=== PATIENT | male | born 1975 | race Caucasian/White ===

== ENCOUNTER 2020-12-16 18:41 | Emergency (ER) | payer OTHER, SELFPAY | END 2020-12-16 18:46 | disposition left against medical advice (07) | PROVIDERS: Emergency Provider Nurse Practitioner Family | DX: Z53.21 Procedure and treatment not carried out due to patient leaving prior to being seen by health care provider (principal) | CPT/HCPCS: 99199 ==

== ENCOUNTER 2025-07-24 15:52 | Outpatient (CLI) | payer OTHER, SELFPAY ==
--- NOTE | ~2025-07-24 | XR_ITS ---
XR lumbar spine 2-3V Indication: M54.9 - Dorsalgia, unspecified Comparison: None Findings: Mild dextroconvex scoliosis, no fracture or subluxation. The disc heights are intact. Soft tissues unremarkable Impression: No acute abnormality. Reviewed, dictated and finalized at location A. Impression: No acute abnormality.
--- NOTE | ~2025-07-24 | XR_ITS ---
XR hand BI arthritis min 3V 07/24/2025 16:25 Indication: Hand pain Procedure: 4 views each hand Comparison: No prior studies for comparison. Findings: There is anatomic alignment. No significant degenerative change. No erosions. No fracture or traumatic malalignment. No significant soft tissue abnormality. No foreign bodies. Impression: 1: No significant bone or joint abnormality. Reviewed, dictated and finalized at location O. Impression: 1: No significant bone or joint abnormality.
--- NOTE | ~2025-07-24 | XR_ITS ---
EXAMINATION: XR chest 2V, 07/24/2025 16:07 CDT HISTORY: R07.89 - Other chest pain COMPARISON: No comparisons available. Technique: 2 views obtained. Findings: The lungs are clear, no effusion. No pneumothorax. Heart is normal size. Mediastinal and hilar contours are within normal limits. Bony thorax no acute abnormality. Impression: No acute cardiopulmonary abnormality. Reviewed, dictated and finalized at location A. Impression: No acute cardiopulmonary abnormality.
[2025-07-24 18:49] LABS: Hematocrit 43.7 % (42.0-52.0); Hemoglobin 14.8 g/dL (14.0-18.0); Mean Corpuscular HGB Conc 33.9 g/dl (32-36); Mean Corpuscular Hemoglobin 30.0 pg (26-34); Mean Corpuscular Volume 88.5 fl (80-100); Platelet Count Result 243 k/mm3 (150-375); Red Blood Count 4.94 M/mm3 (4.6-6.20); White Blood Count 8.5 K/mm3 (4.5-10.0)
[2025-07-24 18:58] LABS: Add Urine Microscopic? NO; Appearance Urine Clear (Clear); Glucose Urine UA Negative (Negative); Leukocyte Esterase Ur Negative LEU/UL (Negative); Nitrate Urine Negative (Negative); Specific Grav Ur 1.019 (1.001-1.035)
[2025-07-24 18:59] LABS: Alanine Aminotransferase 34 U/L (6-50); Albumin Level 4.7 g/dL (3.5-5.1); Alkaline Phosphatase 57 U/L (38-126); Anion Gap 6 mmol/L (4-12); Aspartate Amino Transferase 61 U/L (17-59); Bilirubin,Total 0.4 mg/dL (0.2-1.3); Blood Urea Nitrogen 18 mg/dL (9-20); Calcium 9.4 mg/dL (8.4-10.2); Carbon Dioxide 30 mmol/L (22-30); Chloride 103 mmol/L (98-107); Cholesterol 236 mg/dL (0-200); Estimated Glomerular Filt Rate 47; Glucose 91 mg/dL (65-110); HDL Direct 34 mg/dL; Potassium 4.4 mmol/L (3.4-5.0); Sodium 139 mmol/L (137-145); Total Protein 7.6 g/dL (6.3-8.2); Triglycerides 206 mg/dL (<150)
[2025-07-24 19:15] LABS: Free T4 Free Thyroxine 0.79 ng/dL (0.78-2.19)
[2025-07-24 19:37] LABS: Prostate Specific Antigen 1.6 ng/mL (< OR = 4.0); Thyroid Stimulating Hormone 2.750 uIU/mL (0.465-4.680)
[2025-07-29 08:08] LABS: ANA by IFA Rfx Titer/Pattern Negative (.)
== END 2025-07-24 15:53 | disposition home or self-care (01) ==
LOC: ANHBWCLAB 15:55
PROVIDERS: PCP Nurse Practitioner Adult Health; Visit Provider Nurse Practitioner Adult Health
DX: Z00.00 Encounter for general adult medical examination without abnormal findings (principal); R07.89 Other chest pain; M25.50 Pain in unspecified joint; M79.643 Pain in unspecified hand; M54.9 Dorsalgia, unspecified; R39.9 Unspecified symptoms and signs involving the genitourinary system; Z12.5 Encounter for screening for malignant neoplasm of prostate
CPT/HCPCS: 36415; 71046; 72100; 73130; 80053; 80061; 81003; 84153; 84439; 84443; 85027; 85652; 86038; G0103

== ENCOUNTER 2025-08-05 00:28 | Day surgery (SDC) | payer OTHER, SELFPAY ==
[2025-07-29 12:25] VITALS: BMI 28.1
--- OUTSIDE RECORDS SUMMARY | 2025-08-05 00:31 | XMS_ITS | Clinical Summary ---
Author Organization [facility] Address [address] [place] [id number] Phone Care Team Providers Care Driller Hand Name Role Phone Ming Hall MD Primary Care Provider [phone] Social History Tobacco Use Types Packs/Day Years Used Date Smoking Tobacco: Never Assessed Sex and Gender Information Value Date Recorded Sex Assigned at Not on file Legal Sex Male 8:59 PM CDT Gender Identity Not on file Sexual Orientation Not on file Plan of Treatment Health Maintenance Due Date Last Done Comments Hepatitis C Virus (HCV) Screening 1976 TdaP Immunization 1976 Hepatitis B Immunization (1 of 3 - 19+ 3-dose series) 1995 Cologuard 2021 Colonoscopy 2021 Colorectal Cancer Screening 2021 Immunochemical Fecal Occult Blood 2021 Influenza Immunization (#1) 2025 SARS-COV-2 Immunization ( season) 2025 Respiratory Syncytial Virus (RSV) Immunization (Adult) (1 - 1-dose 75+ series) 2051 Human Papillomavirus (HPV) Immunization Aged Out No longer eligible b ased on patient's age to complete this topic Meningococcal Immunization (ACWY) Aged Out No longer eligible based on patient's age to complete this topic Pneumococcal Immunization Combined Aged Out No longer eligible based on patient's age to complete this topic Rotavirus Immunization Aged Out No lo nger eligible based on patient's age to complete this topic Insurance [employer] Care Teams Driller Hand Relationship Specialty Start Date End Date Ming Hall MD [facility], [address] [place] [id number] PCP - General Infectious Disease 07/16/21
--- OUTSIDE RECORDS SUMMARY | 2025-08-05 00:31 | XMS_ITS | Clinical Summary ---
Author Organization [facility] [address] Address [address] [place] [address] Care Team Providers Care Web Applications Programmer Name Role Phone Ming Hall MD Primary Care Provider [phone] Azar Burnette MD Unavailable [phone] Allergies No known active allergies Medications No known medications Active Problems Problem Noted Date Diagnosed Date Acute pain of left shoulder 05/30/2024 Assessment & Plan (06/04/2024 9:02 AM CDT): Dull aching intermittently for several months, see HPI for details. Mild tenderness as noted on exam, no other acute findings. No marked weakness. See alternate plan for chest pain above. Likely musculoskeletal in nature. Continue ibuprofen and or Tylenol p.r.n.. Heat or ice as tolerated. Gentle [id number]-ps-[id number] activities encouraged. Offered physical therapy consult, patient refused at this time. Chronic RLQ pain 06/23/2023 Assessment & Plan (06/04/2024 9:00 AM CDT): Chronic, uncontrolled. Intermittent burning aching pain as described above. No acute findings on exam. Vital signs stable. CT abdomen pelvis from June 2023 showed small renal stones but no other acute changes. Likely musculoskeletal or gas related. We will check CMP, LDL, TSH with reflex, CBC today to rule out an organ dysfunction or any other acute changes. Can use Gas-X [id number] as needed. Avoid beans; broccoli; cauliflower; brussel sprouts; cabbage; asparagus; wheat; onions; garlic; dairy products; apples; prunes; sugar alcohols; fizzy drinks; beer; chewing gum; and fatty foods. Discussed importance of hydration. Assessment & Plan (06/23/2023 12:57 PM CDT): RLQ pain x 2-3 months. He describes the pain as burning. Complains of constipation, straining, and hard stools, reporting I don't think I go as much as I should. No other associated symptoms. Does admit to taking ibuprofen several times a week. Self-reported history of H.pylori. RLQ- tenderness and guarding on palpation today. R/o pancreatitis, bowel obstruction, masses/lesions Plan: CT scan- abdomen with oral and IV contrast- revealed no acute findings CMP, CBC- pending Consider GI referral Mood disorder 04/14/2021 Assessment & Plan (06/05/2021 2:05 PM CDT): He is here for a follow-up on his mood. He has been working very long hours, sometimes 90 hours per week. His main income is from [employer] and this is the busy season, but he also works at [employer] enough hours to qualify for health insurance. He tried to get a leave from [employer], but they denied it. He is thinking of quitting, but then he would lose his health insurance. His 4 children, who are aged about 10 to 20 years old, are covered under his ex-'s insurance. He was prescribed citalopram by EDDIE Reed, but he forgets to take it. He probably misses several doses a week. He is not sure it has been helping. I encouraged better compliance. We also discussed counseling opportunities. He saw a counselor at [facility] several years ago when he was going through his divorce. He is not sure it was helpful, but I encouraged him to explore it again and engage in talk therapy to give him insight into his feelings. We will see him back in about a month to see how he is doing. Assessment & Plan (04/14/2021 10:23 AM CDT): Patient presents today with increased stress, anxiety, feelings of being overwhelmed and depressed. He is very tearful at visit today and noted to have an elevated PHQ-9 of 11. He reports that he is a single father with sole custody of his 4 children. He has been working 2 jobs to provide for children and to keep his insurance. He states he is unable to sleep and focus the way he needs to. Feels that his anxiety, depression and fatigue are interfering with his ability to work and care for his children. Options were discussed with patient at visit today. He is agreeable and wishes to begin medication for anxiety and depression. He is also agreeable to begin counseling to learn coping strategies and ways to set boundaries. We will have him remain off work for the next 4 weeks to start medication and counseling. He will return at that time for follow up with Dr. Hall to determine if he is able to return to work at that time or not. He will call with any further issues or concerns. Epididymitis 03/25/2021 Overview (03/25/2021): Left side Nephrolithiasis 12/17/2020 Overview (01/29/2021): Started hurting first part of December. Got so bad that he went to the ER. Bilateral nonobstructing kidney stones were seen.. See CT report, [facility]. Assessment & Plan (02/06/2021 12:00 PM CDT): He has known non-obstructing stones in both renal pelves. He had some left flank and testicle pain which seem improved. He may have been passing a stone, although ER work up at the time was more suggestive of left epididymitis. Due to somewhat persistent symptoms in the left flank/superior anterior iliac crest, we will check a follow up ultrasound of the kidneys and a urinalysis. 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 There was no hematuria or dysuria. CT with renal stone protocol showed multiple bilateral nephroliths which were confined to the renal pelves. He may have been passing one of these stones. However, there was no blood in the urine. He also has improved with treatment of possible epididymitis, so exactly what caused is pain is a little unclear. He has been drinking more water and keeping his urine dilute. Continue same. 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 Assessment & Plan (08/15/2018 1:09 PM CDT): We reviewed this history again. He has stiffness and pain in both wrists, right more than left. Exam shows some mild tenderness over the flexor retinaculum of both wrists. However his pain seems more dorsal then volar. There is no synovitis or effusion. The hand joints and elbow joints are all normal. Most likely he has overuse symptoms related to gripping and vibration. He may have early carpal tunnel syndrome. We discussed pursuing EMG and nerve conduction study, but the patient does not want to pursue these tests at this time. We will see him back in three months. 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 As a result, his hands constantly hurt. Sometimes they go numb. The pain seems to be localized in the volar wrist areas. He takes a lot of Motrin due to the pain, and wonders if this has to do with any of his other symptoms such as the right flank pain and the sharp chest pain. Symptoms in his hands are suggestive of possible carpal tunnel syndrome. I do not see any definite inflammatory change at this time. There is no atrophy of the interosseous muscles or other muscles. Additional workup may be needed such as EMG/nerve conduction studies. Other chest pain 04/06/2018 Overview (08/08/2018): Sharp intermittent left upper chest pain with certain movements and breathing deep. Has a mild intermittent cough which he thinks is due to his sinuses. No hemoptysis. Assessment & Plan (06/04/2024 8:59 AM CDT): Dull aching pain that moves around his left chest and shoulder as described above. Not currently complaining of pain, no acute findings on exam. Vital signs stable, no acute signs of cardiac insufficiency. EKG in office today shows normal sinus rhythm with no ectopy or ischemic changes. Likely musculoskeletal in nature. We will check CMP, LDL, TSH with reflex, CBC, chest x-ray to rule out acute changes. Continue ibuprofen as needed. Heat or ice as tolerated. Assessment & Plan (08/15/2018 1:08 PM CDT): We reviewed the history again. He has had some sharp intermittent left parasternal chest pain with certain movements and deep breathing. Exam today is consistent with localized costochondritis at about the third costochondral joint. Chest x-ray was normal. The analgesics/anti-inflammatory medicine should help this. He should also cut back on his work hours (says he mows lawn and does yard work 16-18 hours a day). Assessment & Plan (08/08/2018 2:18 PM CDT): For the past four months or so, he has experienced intermittent sharp pains in the left precordial area. These seem to be positional, and are also worse with inspiration. The come out of the blue. He can go three or four days without any pain. He does smoke a fair amount of marijuana, two or 3 times a week, to deal with anxiety and chronic pain. There is no history of tobacco use. There is no known history of cardiac disease. We will get some labs to help with risk stratification. We will get a chest x-ray. Consider additional workup as needed. Osteoarthritis 03/22/2014 Overview (01/28/2021): Right shoulder DJD on MRI done 07/06/16. Dr. Carrasco. Other joints hurt, occupational. Migraine without aura and wi thout status migrainosus, not intractable 08/06/1996 Overview (08/08/2018): Common migraine, starts with retroorbital pain on left followed by severe left sided pain, nausea and vomiting, sleeps and is better in about 36 hours. Zomig helped, but made him feel weird. Previously occurred weekly, now only every few months. Assessment & Plan (08/08/2018 2:17 PM CDT): He has a long history of what sounds like common migraines starting as a teenager. He used to get them two or 3 times a week, now gets them every two or three months. He took so make for awhile, but it made him feel w eird, so stopped using it. Since the headaches do not occur very often, he simply deals with them by standing in the shower. Vomiting helps alleviate the headache, then he sleeps and is over everything and 36 hr. Will continue to monitor and provide additional input or intervention as needed. Seasonal allergies 08/06/1996 Overview (08/08/2018): With change of seasons, usually gets sinus headache on the right side. Resolved Problems Problem Noted Date Diagnosed Date Resolved Date COVID-19 11/08/2021 07/12/2024 Overview (07/12/2024): Details lacking. Epididymitis 12/17/2020 01/29/2021 Overview (01/29/2021): See ER notes, labs and ultrasound, [facility], 12/17/2020. Treated and symptoms resolved. 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 The pain was worse with any movement. There were no urinary symptoms such as hematuria or dysuria. The ultrasound of his scrotum suggested left epididymitis. He was put on ciprofloxacin and he says the pain is l adriana night and day. Although it is not completely resolved. Exam shows no abnormality at this time other than some mild to moderate tenderness above the left testicle with no definite enlargement of the epididymis. There is no mass. There is no hernia although there is some bulging with Valsalva. He will complete the ciprofloxacin as ordered. We will see him back in about a week to reassess and also take care of his routine annual. Consider additional workup or referral if he is still symptomatic. Left flank pain 12/07/2020 07/12/2024 Overview (07/12/2024): Symptoms significantly improved as a follow-up in February 23, 2021. Assessment & Plan (02/05/2021 3:28 PM CDT): His pain is significantly improved. He has been taking ibuprofen and acetaminophen, alternating doses. We discussed the safe doses acetaminophen and he is well below the maximum recommended 3 g per day. The tenderness over the left anterior superior iliac crest is significantly improved. He has no new urinary or bowel symptoms. We will see him back in about a month if symptoms have not completely resolved. Assessment & Plan (02/06/2021 12:04 PM CDT): Starting around December 07, he developed considerable pain in the left flank area which seem to radiate into the left groin. It got so bad he went to the emergency room on 12/17/2020. Renal stone protocol CT showed multiple small bilateral kidney stones in the renal pelves, but nothing in the ureters. Urinalysis was negative for hematuria. An ultrasound of the left scrotum was suggestive of epididymitis. He was given ciprofloxacin. We saw him in the office one week after his ER visit, and he had some improvement of symptoms but there was not complete resolution. We scheduled him a follow-up for this and his annual, originally scheduled for yesterday but rescheduled by the patient for today. His scrotal and testicle symptoms have largely if not completely resolved. He is urinating without difficulty. However, the left flank pain persists. It now seems mostly localized around the anterior superior iliac crest. It is intermittent and somewhat positional. He has trouble describing it exactly, but says it is like someone hit him, and the bruise pain comes and goes. Certain positions seem to bring it on. He can bend forward at his waist without too much difficulty, but twisting movements are a problem. He does lift boxes at work, but they are not too heavy. By the middle or end of his shift he is hurting quite a bit. He has been taking ibuprofen twice a day to cope with the discomfort. He denies visible hematuria. There is no change in his bowel habits. There is no fever. Exam is fairly unremarkable. There is no tenderness over the spine. No muscle spasms are apparent. There is no tenderness over the anterior superior iliac crest. Abdominal exam is benign. We again reviewed the labs and imaging from the hospital. The cause of the patient's current pain is unclear. It sounds more musculoskeletal than urologic or GI in origin, but it could be a colicky pain due to another stone in the process of passing. We will check a renal sonogram for any evidence of hydronephrosis. We will check a urinalysis for evidence of blood. If symptoms persist, we may want to refer him to Urology. He does have a history of chronic low back pains extending from the mid to upper thoracic area to the lumbosacral junction. He has had it for years. A physician prescribed hydrocodone years ago and he had trouble getting off of it, so he does not want anything to do with narcotics. He will continue taking ibuprofen as needed which he can supplement with plain Tylenol. If he is still symptomatic next week and the ultrasound/urinalysis are unremarkable, we will re-evaluate him in the office and probably refer him for physical therapy. Flank pain 04/06/2018 01/29/2021 Overview (01/29/2021): See office note regarding initial episode of right lower back and flank pain radiating into right inguinal area, some difficulty with urination, but not pain with urination. Imaging was negative. Symptoms resolved with conservative management. Flank pain recurred on the left side in December 2020, see ER and office notes. 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 More recently he was in the ER with left-sided flank pain. It radiates into the left testicle. Symptoms are very similar to his previous bout. It was extremely painful for him to move, even to get off the CT scan table. He does a fair amount of heavy lifting at [employer] where he works. I wonder if he could have a pinched nerve in his back. Straight leg raise is negative bilaterally. All of his symptoms are improving with treatment of possible epididymitis. We will see him back in about a week. Assessment & Plan (08/26/2018 6:18 AM CDT): We reviewed this history again. He has chronic low back pain for many years, but starting about eight or nine months ago, he started to have more persistent and bothersome pain starting in the lower back and radiating into the right groin. Exam two weeks ago was unremarkable except for some possible epididymal tenderness. We got a urinalysis, CBC, chemistry panel, kidney ultrasound. Everything was unremarkable. We discussed possible additional workup such as MRI of his spine looking for a pinched nerve there, or imaging to evaluate for other pathology such as cyst, tumor growth, infection. The patient does not want any additional testing at this time. He will try to do a little less physical labor. He will take Tylenol and Advil for pain. He will consider starting some physical therapy for possible radiculopathy type pain. Follow-up in three months or sooner as needed. Assessment & Plan (08/08/2018 2:16 PM CDT): For the past four months, he has had worsening right lower back/flank pain that radiates into his right groin. The duration of his pain is probably much longer than that because Dr. Degroot used to give him Vicodin. It can be quite severe. He has a physical job ([employer]). Standing on the lower or bumpy around on the lawn makes the pain worse. He also has some difficulty urinating and has to lift his right testicle up to allow for a free flow of urine. There is no pain with urination as such, nor is there any blood in the urine, but he does have urinary frequency. He does drink an excessive number of Mountain Dews, up to eight a day. Exam is fairly unremarkable with no definite epididymal or testicular tenderness, cyst or mass. Symptoms sound a little bit like a kidney stone. We will check a urinalysis and a renal sonogram, also a testicular sonogram. Follow-up in about a week or sooner as needed. Testicle pain 04/06/2018 01/29/2021 Overview (01/29/2021): Right side, see office note. Assessment & Plan (08/26/2018 6:19 AM CDT): He continues to have some testicle pain, but no urinary symptoms other than the unusual need to lift the testicle up to urinate more freely. The significance of this symptom is really unclear at this time. Ultrasound shows a varicocele on the right side but no evidence of inflammatory change. Kidney ultrasound is normal. I suggested a referral to Urology for further evaluation, but the patient declines at this time. We will see him back in three months or sooner as needed. Assessment & Plan (08/08/2018 2:21 PM CDT): In addition to the flank pain, he has been experiencing pain and tenderness in the right testicle. It is actually not painful when he touches it, and massaging it sometimes actually relieves the discomfort a bit. This sounds like a pain that is radiating into the testicle and scrotal sac. There is no definite hernia, just a little bulging on the right side with Valsalva. There is no local mass. We will get a testicular/scrotal ultrasound for further evaluation. Also checking a urinalysis. A course of antibiotics for possible epididymitis is a consideration. Immunizations Immunization Administration Dates Next Due Tetanus toxoid, adsorbed 11/09/2007 Medical History Medical History Date Comments Shingles shingles; Commen ts: patient seen in [facility] in [place] Peptic ulcer disease Stomach [facility] ers, details lacking. History of migraine headaches De tails lacking. Back pain Details lacking. Testicle pain 04/06/2018 Right side, see office note. Flank pain 04/06/2018 See office note regarding initial episode of right lower back and flank pain radiating into right inguinal area, some difficulty with urination, but not pain with urination. Imaging was negative. Symptoms resolved with conservative management. Flank pain recurred on the left side in December 2020, see ER and office notes. Epididymitis 12/17/2020 See ER notes, elva bs and ultrasound, [facility], 12/17/2020. Treated and symptoms resolved. Eye foreign bodies, right, s ubsequent encounter 05/06/2021 EDIE VAIL, OD at [facility]. Got antibiotic drops on 05/17/21. Covid-19 11/08/2021 Details lacking. Left flank pain 12/07/2020 Symptoms signifi cantly improved as a follow-up in February 23, 2021. Family History Medical History Relation Name Comments Alcohol abuse Father 2 Alcoholism; Other Father 2 Alive and well; Other Mother 2 Alive and well; Relation Name Status Comments Father 1 Alive Father 2 Mother 1 Alive Mother 2 Social History Tobacco Use Types Packs/Day Years Used Date Smoking Tobacco: Never Alcohol Use Standard Drinks/Week Comments No 0 (1 standard drink = 0.6 oz pur e alcohol) PHQ-2 Answer Date Recorded PHQ-2 Total Score (If total score is 3 or more points, staff should administer the PHQ-9) 3 04/14/2021 Sex and Gender Information Value Date Recorded Sex Assigned at Not on file Legal Sex 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 Gender Identity Not on file Sexual Orientation Not on file Obstetrics History Last Filed Vital Signs Vital Sign Reading Time Taken Comments Blood Pressure 148/86 07/12/2024 3:23 PM CDT Pulse 91 07/12/2024 3:23 PM CDT Temperature 36.9 C (98.4 F) 07/12/2024 3:23 PM CDT Respiratory Rate 16 07/12/2024 3:23 PM CDT Oxygen Saturation 98% 07/12/2024 3:23 PM CDT Inhaled Oxygen Concentration - - Weight 85.7 kg (189 lb) 07/12/2024 3:23 PM CDT Height 172.7 cm (5' 7.99) 07/12/2024 3:23 PM CD T Body Mass Index 28.74 07/12/2024 3:23 PM CDT Plan of Treatment Health Maintenance Due Date Last Done Comments Colon Cancer Screening-Colonoscopy 1976 Hepatitis C Screening 1976 Hepatitis B Screening 1994 DTaP/Tdap/Td Vaccine (1 - Tdap) 11/10/2007 11/09/2007 Regular Well Visit/Exam 18-64 01/29/2022, 08/08/2018 Depression Screening 04/14/2022 04/14/2021, 01/29/2021, 08/08/2018 Influenza Vaccine (#1) 2025 Pneumococcal vaccine <65 Aged Out No longer eligible based on patient's age to complete this topic Insurance [facility] P[facility]ALTH [facility] H[facility]/PPO Address: [facility] [id number] [place] [address] [facility] Care Teams Web Applications Programmer Relationship Specialty Start Date End Date Ming Hall MD [address] [place] [address] PCP - General Infectious Diseases 08/08/18 Azar Burnette MD [address] [place] [address] Consulting Physician Urology 04/15/21
[2025-08-05 09:46] VITALS: BP 128/88; PULSE 91; RESP 18; TEMP 36.1; O2SAT 100
[2025-08-05] MEDS: LACTATED RINGERS 1,000 ML 150 ML IV CONT (09:56)
--- NOTE | 2025-08-05 10:02 | PM.HPGS ---
History of Present Illness History of Present Illness Consent: Risks, benefits, and alternatives have been discussed and questions answered. Patient agrees to proceed with procedure. Chief complaint: GERD/SCREENING Narrative: John Luna is a 50 year old male with gerd and abdominal discomfort, had EGD in his mid 20's and diagnosed with h pylori, also needs his first screening colonoscopy Review of Systems Review of Systems: All systems reviewed & are unremarkable except as noted in HPI and below PMFSH Past Medical History Medical History (Updated 07/28/25 @ 08:33 by Anne Khalil APRN) Migraine Family History Family History (Updated 07/24/25 @ 15:04 by Brea Blake MA) Father History of ETOH abuse Mother History of ETOH abuse Sibling History of ETOH abuse Cerebrovascular accident Heart disease Social History Social History (Updated 07/24/25 @ 15:06 by Brea Blake MA) Smoking status: Never smoker Additional smoking assessment comments: Does not smoke Alcohol intake: never Substance use: current Substance use type: marijuana Last use: Occasionally Do You Feel Safe in your Home?: Yes Lack of Transportation: No Lack of Food: Never True Current Housing: I Have Housing Concerned About Future Housing: No Difficulty Paying Gas/Electric Bills: No Difficulty Paying for Meds: No Currently Unemployed: No Education: Bachelor's Degree Difficulty w/ Childcare or Family Care: No Living arrangements: with family Additional occupation/education comments: [employer] Gender identity (if verbalized by the patient): Male Spiritual care concerns: No Meds Home Medications and Allergies Home Medications ?Medication ?Instructions ?Recorded ?Confirmed ?Type ibuprofen 200 mg tablet 200 mg PO Q6H PRN pain 07/24/25 07/29/25 History Held on 07/24/25. Instructions: .Provider Order omeprazole 40 mg capsule,delayed 40 mg PO DAILY #30 caps 07/24/25 08/05/25 Rx release acetaminophen 325 mg tablet 325 mg PO ONCE PRN pain 07/29/25 07/29/25 History (Tylenol) Allergies Allergy/AdvReac Type Severity Reaction Status Date / Time No Known Allergies Allergy Unknown Verified 08/05/25 09:45 Vital Signs Vital Signs - 24 hr 08/05/25 09:46 Temperature 97 F L Pulse Rate 91 Respiratory Rate 18 Blood Pressure 128/88 Pulse Oximetry 100 Oxygen Delivery Room Air Exam Const: General: comfortable and no acute distress HENMT: Face/Nose/Sinus: Normal nares present Eyes: General: appearance normal, both eyes and all related structures Resp: Auscultation: clear to auscultation bilaterally Cardio: Rate: regular rate Rhythm: regular rhythm GI: Inspection: non-distended GI Palp: Yes Soft to palpation Skin: General skin exam: normal color Neuro: Speech: normal speech Extrem: General: normal to inspection Psych: Mental Status: mental status grossly normal Assessment and Plan Assessment and plan (1) Screening for colon cancer: Code(s): Z12.11 - Encounter for screening for malignant neoplasm of colon Status: Acute Assessment and Plan: colonoscopy (2) GERD (gastroesophageal reflux disease): Code(s): K21.9 - Gastro-esophageal reflux disease without esophagitis Status: Acute Assessment and Plan: egd with bx
--- NOTE | 2025-08-05 10:03 | WPDANESEPPF ---
Anes - Initial Pre Proc Eval Procedure: Operation Date: 08/05/25 11:00 Proposed Procedures p EGD & Screening Colonoscopy - John Turner MD Date/Time: 08/05/25 10:03 Surgeon: John Turner MD Pre Op Diagnosis: GERD/SCREENING Patient Data Age: 50 Gender: M Height: 1.73 m Weight: 80.7 kg Last Vital Signs Temp 97 F L 08/05/25 09:46 Pulse 91 08/05/25 09:46 Resp 18 08/05/25 09:46 BP 128/88 08/05/25 09:46 Pulse Ox 100 08/05/25 09:46 O2 Del Method Room Air 08/05/25 09:46 Allergies Allergy/AdvReac Type Severity Reaction Status Date / Time No Known Allergies Allergy Unknown Verified 08/05/25 09:45 Home Medications ?Medication ?Instructions ?Recorded ?Confirmed ?Type ibuprofen 200 mg tablet 200 mg PO Q6H PRN pain 07/24/25 07/29/25 History Held on 07/24/25. Instructions: .Provider Order omeprazole 40 mg capsule,delayed 40 mg PO DAILY #30 caps 07/24/25 08/05/25 Rx release acetaminophen 325 mg tablet 325 mg PO ONCE PRN pain 07/29/25 07/29/25 History (Tylenol) Patient hx anesthesia problems: none Family hx anesthesia problems: none Results Review: All pre-operative results and documents have been reviewed as part of the pre-operative evaluation. PMFSH Past Medical History Medical History Migraine Family History Family History Father History of ETOH abuse Mother History of ETOH abuse Sibling History of ETOH abuse Cerebrovascular accident Heart disease Social History Social History Smoking status: Never smoker Additional smoking assessment comments: Does not smoke Alcohol intake: never Substance use: current Substance use type: marijuana Last use: Occasionally Do You Feel Safe in your Home?: Yes Lack of Transportation: No Lack of Food: Never True Current Housing: I Have Housing Concerned About Future Housing: No Difficulty Paying Gas/Electric Bills: No Difficulty Paying for Meds: No Currently Unemployed: No Education: Bachelor's Degree Difficulty w/ Childcare or Family Care: No Living arrangements: with family Additional occupation/education comments: [employer] Gender identity (if verbalized by the patient): Male Spiritual care concerns: No Anes - Eval Final PreProcedure Day of Procedure 08/05/25 10:03 Patient weight: normal Lungs: normal air movement Airway: Mallampati scale class II Neurological: alert and oriented Last oral intake: >/= 8 hours ASA classification: II Emergent: no Anesthetic plan: proceed Anesthesia type and monitoring: general GIVS and standard monitoring Results Review: All pre-operative results and documents have been reviewed as part of the pre-operative evaluation. Hx of migrane headaches, remote hx of PUD. Pt had some N/V overnight w prep, better in preop area w IV fluids, no more nausea. Informed Consent: The patient's anesthetic plan and its attendant risks and benefits were discussed with the patient/family/POA. Questions were solicited and answers provided to the satisfaction of the patient/family/POA.
[2025-08-05] MEDS: BENZOCAINE (*SP) 60 ML SPRAY CAN (HURRICAINE) 1 SPRAY MUCOUS MEM (10:07)
--- NOTE | 2025-08-05 10:11 | S_PTH ---
PATIENT: John Luna LOC: [facility]#:[id number] AGE/SX: 50/M ROOM: RE08/05/[address]: John Turner MD : 1975 BED: DIS: 08/05/2025 SPEC #: [id number] RECD: 08/05/25 11:20 STATUS: FLO RETatum #: [id number] MORIAH: 08/05/25 10:[address]: John Turner DEPT: [facility] Surgical RECD BY: Darvin Cr ENTERED: 08/05/25 11:21 SP TYPE: Surgical OTHR DR: Anne Khalil APRN Tissues: A - Small Bowel Bx B - Gastric Biopsy C - Esophageal Biopsy D - Colon Polypectomy Procedures: Pas with Diastase Grocotts Methenamine Stain Hematoxylin and Eosin Stain Gross and Microscopic Level 4
--- NOTE | 2025-08-05 10:22 | SUR.OPER ---
EGD: [id number] COLON: Start 1021
[2025-08-05 10:31] VITALS: BP 110/69; PULSE 89; RESP 27; O2SAT 99
[2025-08-05 10:41] VITALS: BP 121/81; PULSE 86; RESP 24; O2SAT 100
[2025-08-05 10:51] VITALS: BP 126/81; PULSE 88; RESP 24; O2SAT 99
== END 2025-08-05 10:58 | disposition home or self-care (01) ==
PROVIDERS: PCP Nurse Practitioner Adult Health; Referring Provider Nurse Practitioner Adult Health; Visit Provider Internal Medicine Gastroenterology
PROC: 0DJ08ZZ Inspection of Upper Intestinal Tract, Via Natural or Artificial Opening Endoscopic (ICD-10-PCS; CPT 45378; principal; 2025-08-05 11:00)
DX: Z12.11 Encounter for screening for malignant neoplasm of colon (principal); K63.5 Polyp of colon; K21.00 Gastro-esophageal reflux disease with esophagitis, without bleeding; K44.9 Diaphragmatic hernia without obstruction or gangrene; G43.909 Migraine, unspecified, not intractable, without status migrainosus; F12.90 Cannabis use, unspecified, uncomplicated; Z79.1 Long term (current) use of non-steroidal anti-inflammatories (NSAID); Z87.11 Personal history of peptic ulcer disease; Z82.49 Family history of ischemic heart disease and other diseases of the circulatory system
CPT/HCPCS: 43239; 45385; 88305; 88312; 88313; J2003; J2704; J7120

== ENCOUNTER 2025-08-28 13:40 | Outpatient (CLI) | payer OTHER, SELFPAY ==
--- OUTSIDE RECORDS SUMMARY | 2025-08-28 14:36 | XMS_ITS | Clinical Summary ---
Author Organization [facility] Address [address] [place] [id number] Phone Care Team Providers Care Educational Assistant Teacher Name Role Phone Ming Hall MD Primary Care Provider [phone] Social History Tobacco Use Types Packs/Day Years [...] patient's age to complete this topic Insurance [employer] Care Teams Educational Assistant Teacher Relationship Specialty Start Date End Date Ming Hall MD [address], [address] [place] [id number] PCP - General Infectious Disease 07/16/21
--- OUTSIDE RECORDS SUMMARY | 2025-08-28 14:36 | XMS_ITS | Clinical Summary ---
Author Organization [facility] Address [address] [place] [address] Care Team Providers Care Clam Bed Laborer Name Role Phone Ming Hall MD Primary Care Provider [phone] Azar Burnette MD Unavailable [phone] Allergies No known active allergies Medications No [...] p.r.n.. Heat or ice as tolerated. Gentle dnzag-bf-xldoew activities encouraged. Offered physical therapy consult, patient [...] any other acute changes. Can use Gas-X [id number]-fhw-[id number] as needed. Avoid beans; broccoli; cauliflower; brussel [...] per week. His main income is from [employer] and this is the busy season, but he also works at [employer] enough hours to qualify for health insurance. He tried to get a leave from [employer], but they denied it. He is thinking [...] counseling opportunities. He saw a counselor at [facility] several years ago when he was going [...] urinalysis. 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 As [...] (01/29/2021): See ER notes, labs and ultrasound, [facility], 12/17/2020. Treated and symptoms resolved. Assessment & Plan (12/25/2020 11:17 AM [employer]): He was in the ER about a [...] notes. Assessment & Plan (01/03/2021 9:41 AM [employer]): He has a history of right lower [...] a fair amount of heavy lifting at [employer] where he works. I wonder if he [...] quite severe. 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 Standing on the lower or bumpy around [...] Shingles shingles; Commen ts: patient seen in [facility] in [place] Peptic ulcer disease Stomach [facility] ers, details lacking. History of migraine [...] on file Legal Sex Male 7:38 PM [employer] Gender Identity Not on file Sexual Orientation [...] patient's age to complete this topic Insurance [facility] PPO [facility] Care Teams Clam Bed Laborer Relationship Specialty Start Date End Date Ming Hall MD [address] [place] [address] PCP - General Infectious Diseases 08/08/18 Azar Burnette MD [address] [place] [address] Consulting Physician Urology 04/15/21
[2025-08-28 18:51] LABS: Albumin Level 4.6 g/dL (3.5-5.1); Anion Gap 8 mmol/L (4-12); Blood Urea Nitrogen 13 mg/dL (9-20); Calcium 9.2 mg/dL (8.4-10.2); Carbon Dioxide 29 mmol/L (22-30); Chloride 101 mmol/L (98-107); Estimated Glomerular Filt Rate > 60; Glucose 94 mg/dL (65-110); Potassium 4.6 mmol/L (3.4-5.0); Sodium 138 mmol/L (137-145)
== END 2025-08-28 13:41 | disposition home or self-care (01) ==
PROVIDERS: PCP Nurse Practitioner Adult Health; Visit Provider Nurse Practitioner Adult Health
DX: N28.9 Disorder of kidney and ureter, unspecified (principal)
CPT/HCPCS: 36415; 80069

== ENCOUNTER 2025-10-14 09:15 | Outpatient (CLI) | payer OTHER, SELFPAY ==
--- NOTE | ~2025-10-14 | XR_ITS ---
[id number] Indication: M54.2 - Cervicalgia Comparison: None Findings: The vertebral heights are intact. No fracture or subluxation. The disc heights are intact. Soft tissues unremarkable Impression: No acute abnormality. Reviewed, dictated and finalized at location [facility] Impression: No acute abnormality.
[2025-10-14 19:30] LABS: Hematocrit 43.0 % (42.0-52.0); Hemoglobin 14.6 g/dL (14.0-18.0); Immature Granulocyte Percent A 0.3 % (0-0.5); Lymphocytes Absolute Auto 1.77 K/mm3 (0.9-3.2); Mean Corpuscular HGB Conc 34.0 g/dl (32-36); Mean Corpuscular Hemoglobin 30.5 pg (26-34); Mean Corpuscular Volume 90.0 fl (80-100); Nucleated Red Blood Cells Absolute Auto 0.000 K/mm3 (0.0-0.012); Nucleated Red Blood Cells Perc 0.0 % (0.0-0.2); Platelet Count Result 218 k/mm3 (150-375); Red Blood Count 4.78 M/mm3 (4.6-6.20); White Blood Count 9.7 K/mm3 (4.5-10.0)
== END 2025-10-14 09:16 | disposition home or self-care (01) ==
LOC: ANHBWCLAB 09:16
PROVIDERS: PCP Nurse Practitioner Adult Health; Visit Provider Nurse Practitioner Adult Health
DX: J02.9 Acute pharyngitis, unspecified (principal); M54.2 Cervicalgia
CPT/HCPCS: 36415; 72040; 85025